=== PATIENT | male | born 1990 | race Caucasian/White ===

== ENCOUNTER 2016-11-03 16:35 | Emergency (ER) | payer MEDICAID, OTHER ==
[2016-11-03 16:42] VITALS: BP 155/74; PULSE 91; RESP 18; TEMP 98.2; O2SAT 98
--- NOTE | 2016-11-03 17:26 | UCPHY ---
H & P Time Seen by Provider: 11/03/16 17:10 Patient Type: Established HPI/ROS: This patient has some right facial skin redness and discomfort that started over the past 3 days. Symptoms have gradually worsened during that time. He stopped shaving approximately 5 days ago and he reports feeling of mild subjective fevers at times since the symptoms started. No other associated symptoms. The discomfort is moderate intensity with no exacerbating or alleviating factors. ROS: No high fevers or chills. No other skin lesions. 5 point ROS is otherwise negative. Past Medical/Surgical History: Psychiatric Otherwise healthy Smoking Status: Light smoker Physical Exam: Physical Exam Vital signs are normal. General: No acute distress HEENT: Nose: Clear discharge bilaterally. No sinus tenderness to percussion. Ears: External canals and tympanic membranes are clear with no erythema or abnormal findings bilaterally. Oropharynx: No erythema or exudates. No dysphonia. No drooling or stridor. There is no dental tenderness or gingival swelling to the right lower mandible. No submental swelling. Eyes: Pupils equal and react to light. Extraocular motions are intact. Lungs: Clear to auscultation bilaterally with no rales, rhonchi or wheeze. No respiratory distress. Cardiac: Regular rate and rhythm with no murmur gallop or rub Skin: There is a 3 x 2 cm area of erythema to the skin the right lower cheek with mild [place] edema but no fluctuance on my exam. This is associated with mild warmth to touch. There is no wound associated with this. Patient has moderate facial hair overlying this but the area of erythema is confluent. Neuro: Alert with no focal deficits noted. Initial differential diagnosis: Folliculitis, cellulitis, doubt abscess Constitutional: Initial Vital Signs Temperature (C) 36.8 C 11/03/16 16:38 Heart Rate 91 11/03/16 16:38 Respiratory Rate 18 11/03/16 16:38 Blood Pressure 155/74 H 11/03/16 16:38 O2 Sat (%) 98 11/03/16 16:38 O2 Delivery Mode Room Air Allergies/Adverse Reactions: No Known Allergies Allergy (Unverified 11/03/16 16:37) Home Medications: Medication Instructions Recorded Adderall 10 MG (*) 11/03/16 Doxycycline Hyclate [Vibramycin 100 mg PO BID #20 cap 11/03/16 100 MG (*)] LAMOTRIGINE 11/03/16 [place] Carbonate 11/03/16 MDM/Departure - [facility] ED Course/Re-evaluation: Discussion: A small discrete area of cellulitis question confluent folliculitis but no fluctuance. Given his well appearance without evidence of toxicity, dental abscess or Darvin's angina will treat him with oral antibiotics. Counseled him regarding this. He is given appropriate precautions to return for any significant worsening of symptoms despite the treatment plan. - Depart Disposition: Home, Routine, Self-Care Clinical Impression: Facial cellulitis Condition: Good Instructions: Cellulitis (ED) Additional Instructions: Diagnosis: Facial cellulitis Plan: Warm packs to 3 times a day Doxycycline antibiotic Ibuprofen Tylenol for discomfort Return for any significant worsening despite the treatment plan He will likely take 3-4 days before it starts to improve. However, you should return if significant worsening. Prescriptions: Doxycycline Hyclate [Vibramycin 100 MG (*)] 100 mg PO BID #20 cap Referrals: NONE *PRIMARY CARE P,. [Primary Care Provider] - As per Instructions - PQRS PQRS Measurement: NA
== END 2016-11-03 17:30 | disposition home or self-care (01) ==
LOC: CED 16:35
DX: L03.211 Cellulitis of face (principal)
CPT/HCPCS: 99214-PO; G0463-PO

== ENCOUNTER 2017-02-21 16:00 | Emergency (ER) | payer MEDICAID ==
[2017-02-21] MEDS ORDERED: NS 1,000 ML IV ONE (16:43)
--- NOTE | 2017-02-21 17:00 | EDPHY ---
H & P Stated Complaint: 1 week exhaustion/chills n/v on lithium HPI/ROS: CHIEF COMPLAINT: Flu-like symptoms, possible lithium toxicity HISTORY OF PRESENT ILLNESS: Patient complains of 1 week history of feeling tired, fatigued, weak and not quite himself. He also feels that he has had some sweating, headache and vague complaints. He feels he might have some flu- like symptoms, but he denies sore throat, sinus congestion, cough. Occasionally some shortness of breath. EKG some abdominal discomfort. No neck pain or stiffness. No trauma or injury. No actual vomiting. No change in his bowel habits. He saw his psychologist today who referred him here due to fear that his lithium level may be elevated. He has been on 1200 mg of lithium once daily for the past 4 months. There has been no change in the medication. He has not missed any doses. He is not taking any extra doses. He is not suicidal or exhibiting depression at this time. He does describe a hypomanic episode last week. No other associated complaints or modifying factors. REVIEW OF SYSTEMS: Ten systems reviewed and are negative unless otherwise noted in the HPI PAST MEDICAL HISTORY: Bipolar disorder SOCIAL HISTORY: Occasional smoker and marijuana use FAMILY HISTORY: Noncontributory EXAMINATION General Appearance: Alert, no distress Head: normocephalic, atraumatic Eyes: Pupils equal and round, no conjunctival pallor or injection ENT, Mouth: Mucous membranes moist. Uvula midline. Airway widely patent. Neck: Normal inspection, supple, non-tender. Painless range of motion all planes. No meningismus or rigidity Respiratory: Lungs are clear to auscultation. No wheezing, rhonchi or crackles Cardiovascular: Regular rate and rhythm. No murmur. Pulses intact distally. Gastrointestinal: Abdomen is soft and nontender Neurological: GCS 15. A&O, nonfocal, normal gait. Strength is symmetric in all 4 limbs Skin: Warm and dry, no rash. No petechiae. No purpura. Extremities: Nontender, no pedal edema Psychiatric: Mood and affect normal DIFFERENTIAL DIAGNOSES: Including but not limited to viral illness, influenza, mononucleosis, abnormal lithium level, lithium toxicity, dehydration, acute kidney injury MDM: 4:25 p.m. Patient reports multiple symptoms that are consistent with flu-like or viral illness. He also is here as his psychologist was concerned that his lithium level might be abnormal. He has examination suggest viral illness. He is not encephalopathic. His vital signs are within normal limits. Laboratory studies are pending at this time and 6:00 p.m. I have re-evaluated the patient. He is resting comfortably on his phone. Laboratory studies are unremarkable thus far. This does include a lithium level that is well within normal limits. respiratory pathogen panel is pending at this time 6:40 p.m. I have re-evaluated the patient. He is feeling well at this time. He wants to be discharged home. Vital signs remained stable. The only thing pending is his respiratory pathogen panel. I informed him that this will not be run until later this evening and that he may call for results on this. He is comfortable this plan. At his request I will provide information for Infectious Disease as he and his mother are concerned about other, non common viral illnesses. He would like to be tested for these. I informed him that he can do so there. He has strict return to emergency department precautions. He is discharged home in stable condition. SUPERVISION: Patient was evaluated in conjunction with the supervising physician. Please see their note for details. Source: Patient Exam Limitations: No limitations - Personal History Current Tetanus/Diphtheria Vaccine: Yes - Medical/Surgical History Hx Asthma: No Hx Chronic Respiratory Disease: No Hx Diabetes: No Hx Cardiac Disease: No Hx Renal Disease: No Hx Cirrhosis: No Hx Alcoholism: No Hx HIV/AIDS: No Hx Splenectomy or Spleen Trauma: No Other PMH: Bipolar, PTSD, ADHD, tonsilectomy, adnoidectomy, exploratory abdominal surgery. appy - Social History Smoking Status: Light smoker Constitutional: Initial Vital Signs Temperature (C) 97.7 F 02/21/17 16:01 Heart Rate 82 02/21/17 16:01 Respiratory Rate 17 02/21/17 16:01 Blood Pressure 133/87 H 02/21/17 16:01 O2 Sat (%) 99 02/21/17 16:01 O2 Delivery Mode Room Air Allergies/Adverse Reactions: No Known Allergies Allergy (Unverified 11/03/16 16:37) Home Medications: Medication Instructions Recorded LAMOTRIGINE 11/03/16 [place] Carbonate 11/03/16 Humira 02/21/17 VYVANSE 02/21/17 Medical Decision Making - Data Points Laboratory Results: Laboratory Results 02/21/17 16:51 02/21/17 16:51 02/21/17 02/21/17 02/21/17 17:20 17:20 16:51 WBC RBC Hgb Hct MCV MCH MCHC RDW Plt Count MPV Neut % (Auto) Lymph % (Auto) Craig % (Auto) Eos % (Auto) Baso % (Auto) Nucleat RBC Rel Count Absolute Neuts (auto) Absolute Lymphs (auto) Absolute Monos (auto) Absolute Eos (auto) Absolute Basos (auto) Absolute Nucleated RBC Immature Gran % Immature Gran # Sodium Potassium Chloride Carbon Dioxide Anion Gap BUN Creatinine Estimated GFR Glucose Calcium Total Bilirubin Conjugated Bilirubin Unconjugated Bilirubin AST ALT Alkaline Phosphatase Total Protein Albumin Lipase Urine Color YELLOW Urine Appearance MODERATELY TURBID Urine pH 7.0 (5.0-7.5) Ur Specific [place] 1.019 (1.002-1.030) Urine Protein NEGATIVE (NEGATIVE) Urine Ketones TRACE H (NEGATIVE) Urine Blood NEGATIVE (NEGATIVE) Urine Nitrate NEGATIVE (NEGATIVE) Urine Bilirubin NEGATIVE (NEGATIVE) Urine Urobilinogen NEGATIVE EU EU (0.2-1.0) Ur Leukocyte Esterase NEGATIVE (NEGATIVE) Urine RBC Pending Urine WBC Pending Ur Epithelial Cells Pending Urine Glucose NEGATIVE (NEGATIVE) [place] Monoscreen NEGATIVE (NEGATIVE) 02/21/17 02/21/17 16:51 16:51 WBC 12.97 10^3/uL H 10^3/uL (3.80-9.50) RBC 4.99 10^6/uL 10^6/uL (4.40-6.38) Hgb 15.8 g/dL g/dL (13.7-17.5) Hct 45.6 % % (40.0-51.0) MCV 91.4 fL fL (81.5-99.8) MCH 31.7 pg pg (27.9-34.1) MCHC 34.6 g/dL g/dL (32.4-36.7) RDW 12.5 % % (11.5-15.2) Plt Count 318 10^3/uL 10^3/uL (150-400) MPV 8.7 fL fL (8.7-11.7) Neut % (Auto) 73.1 % % (39.3-74.2) Lymph % (Auto) 19.0 % % (15.0-45.0) Craig % (Auto) 5.9 % % (4.5-13.0) Eos % (Auto) 1.1 % % (0.6-7.6) Baso % (Auto) 0.4 % % (0.3-1.7) Nucleat RBC Rel Count 0.0 % % (0.0-0.2) Absolute Neuts (auto) 9.48 10^3/uL H 10^3/uL (1.70-6.50) Absolute Lymphs (auto) 2.47 10^3/uL 10^3/uL (1.00-3.00) Absolute Monos (auto) 0.77 10^3/uL 10^3/uL (0.30-0.80) Absolute Eos (auto) 0.14 10^3/uL 10^3/uL (0.03-0.40) Absolute Basos (auto) 0.05 10^3/uL 10^3/uL (0.02-0.10) Absolute Nucleated RBC 0.00 10^3/uL 10^3/uL (0-0.01) Immature Gran % 0.5 % % (0.0-1.1) Immature Gran # 0.06 10^3/uL 10^3/uL (0.00-0.10) Sodium 142 mEq/L mEq/L (134-144) Potassium 4.2 mEq/L mEq/L (3.5-5.2) Chloride 106 mEq/L mEq/L (97-110) Carbon Dioxide 23 mEq/l mEq/l (22-31) Anion Gap 13 mEq/L mEq/L (8-16) BUN 14 mg/dL mg/dL (7-23) Creatinine 0.8 mg/dL mg/dL (0.7-1.3) Estimated GFR > 60 Glucose 90 mg/dL mg/dL (70-100) Calcium 9.8 mg/dL mg/dL (8.5-10.4) Total Bilirubin 0.7 mg/dL mg/dL (0.1-1.4) Conjugated Bilirubin 0.3 mg/dL mg/dL (0.0-0.5) Unconjugated Bilirubin 0.4 mg/dL mg/dL (0.0-1.1) AST 19 IU/L IU/L (17-59) ALT 30 IU/L IU/L (21-72) Alkaline Phosphatase 63 IU/L IU/L (38-126) Total Protein 6.8 g/dL g/dL (6.3-8.2) Albumin 4.6 g/dL g/dL (3.5-5.0) Lipase 39.0 IU/L IU/L (23-300) Urine Color Urine Appearance Urine pH Ur Specific [place] Urine Protein Urine Ketones Urine Blood Urine Nitrate Urine Bilirubin Urine Urobilinogen Ur Leukocyte Esterase Urine RBC Urine WBC Ur Epithelial Cells Urine Glucose [place] 0.7 mEq/L mEq/L (0.6-1.2) Monoscreen Medications Given: Discontinued Medications Sodium Chloride (Ns) 1,000 mls @ 0 mls/hr IV ONCE ONE; Wide Open PRN Reason: Protocol Stop: 02/21/17 16:44 Last Admin: 02/21/17 16:54 Dose: 1,000 mls Departure - Departure Disposition: Home, Routine, Self-Care Clinical Impression: Viral syndrome Condition: Good Instructions: Viral Syndrome (ED) Additional Instructions: 1. Contact primary care physician 2. Follow up with infectious disease or Health Department for further testing 3. Return here for any worsening headache, fever, any neck pain or stiffness, chest pain Referrals: NONE *PRIMARY CARE P,. [Primary Care Provider] - As per Instructions [place] MG [Medical Doctor] - As per Instructions [facility] ([facility],. [Edm Groups for Call Sched] - As per Instructions Stand Alone Forms: Work Excuse
[2017-02-21 17:06] LABS: % IMMATURE GRANULYOCYTES 0.5 % (0.0-1.1); ABSOLUTE IMMATURE GRANULOCYTES 0.06 10^3/uL (0.00-0.10); ADD DIFF? NO; ADD MORPH? NO; ADD SCAN? NO; ATYPICAL LYMPHOCYTE FLAG 20 (0-99); FRAGMENT RBC FLAG 0 (0-99); HEMATOCRIT 45.6 % (40.0-51.0); HEMOGLOBIN 15.8 g/dL (13.7-17.5); LEFT SHIFT FLG 0 (0-99); LIPEMIA HEMOLYSIS FLAG 90 (0-99); MEAN CELL HEMOGLOBIN 31.7 pg (27.9-34.1); MEAN CELL HEMOGLOBIN CONCENTR. 34.6 g/dL (32.4-36.7); MEAN CELL VOLUME 91.4 fL (81.5-99.8); MEAN PLATELET VOLUME 8.7 fL (8.7-11.7); PLATELET CLUMPS FLAG 0 (0-99); PLATELET COUNT 318 10^3/uL (150-400); RED BLOOD CELL COUNT 4.99 10^6/uL (4.40-6.38); RED CELL DISTRIBUTION WIDTH 12.5 % (11.5-15.2)
[2017-02-21 17:22] LABS: ALANINE AMINOTRANSFERASE 30 IU/L (21-72); ALBUMIN 4.6 g/dL (3.5-5.0); ALKALINE PHOSPHATASE 63 IU/L (38-126); ANION GAP 13 mEq/L (8-16); ASPARTATE AMINOTRANSFERASE 19 IU/L (17-59); BILIRUBIN,TOTAL 0.7 mg/dL (0.1-1.4); BILIRUBIN-CONJUGATED 0.3 mg/dL (0.0-0.5); BILIRUBIN-UNCONJUGATED 0.4 mg/dL (0.0-1.1); CALCIUM 9.8 mg/dL (8.5-10.4); CARBON DIOXIDE 23 mEq/l (22-31); CHLORIDE 106 mEq/L (97-110); CREATININE 0.8 mg/dL (0.7-1.3); GLOMERULAR FILTRATION RATE > 60; GLUCOSE 90 mg/dL (70-100); LITHIUM 0.7 mEq/L (0.6-1.2); POTASSIUM 4.2 mEq/L (3.5-5.2); SODIUM 142 mEq/L (134-144); TOTAL PROTEIN 6.8 g/dL (6.3-8.2)
[2017-02-21 17:34] LABS: COLOR YELLOW; LEUKOCYTE ESTERASE,URINE NEGATIVE (NEGATIVE); NITRITE,URINE NEGATIVE (NEGATIVE)
[2017-02-21 18:03] VITALS: RESP 18
[2017-02-21 18:41] LABS: AMORPHOUS PRESENT /hpf (NONE-1+); MUCUS TRACE /lpf (NONE-1+)
[2017-02-21 18:42] LABS: WBC,URINE NONE SEEN /hpf (0-3)
[2017-02-21 18:50] VITALS: BP 108/76; PULSE 68; TEMP 98.2; O2SAT 96
== END 2017-02-21 18:49 | disposition home or self-care (01) ==
DX: B34.9 Viral infection, unspecified (principal); F17.200 Nicotine dependence, unspecified, uncomplicated; E86.9 Volume depletion, unspecified